=== PATIENT | male | born 1990 | race Caucasian/White ===

== ENCOUNTER 2017-12-23 18:13 | Emergency (ER) | payer BC ==
[2017-12-23 18:38] VITALS: BP 191/117
[2017-12-23] MEDS ORDERED: Aspirin Low Dose CHEW TAB* 81 MG PO ONE (18:48)
--- NOTE | 2017-12-23 18:54 | UC ---
Cardiac HPI - HPI Summary HPI Summary: Pt presents to ED with SO. Pt states approx 1 hour ago was driving when developed sudden left sided heaviness. Pt sates pain radiated to right side and right scapula. Pt states felt SOB with pain. no diaphoresis, no nausea. No khoury, vision changes. Pt states at present, pain primarily in right scapula. Pt denies SOB, lightheadedness. No h/o similar. Pt states SOB increased when laid flat for EKG. no h/o similar. Pt states MGF [place] age 40. No DM. No tobacco use Pt's medications reviewed this visit - History of Current Complaint Chief Complaint: UCChestPain Stated Complaint: CHEST PAIN Time Seen by Provider: 12/23/17 18:28 Hx Obtained From: Patient Onset/Duration: Gradual Onset Initial Severity: Moderate Current Severity: Mild Chest Pain Location: Right Anterior, Left Lateral Character: Dull/Aching, Heaviness, Pressure/Squeezing Aggravating Factor(s): Nothing Alleviating Factor(s): Rest Associated Signs & Symptoms: Negative: Weakness, Dizziness, Cough, Back Pain - Allergy/Home Medications Allergies/Adverse Reactions: Allergies Allergy/AdvReac Type Severity Reaction Status Date / Time No Known Allergies Allergy Verified 12/23/17 18:27 Home Medications: Home Medications FLUoxetine CAP* [Prozac CAP*] 20 mg DAILY 12/23/17 [History Confirmed 12/23/17] PMH/Surg Hx/FS Hx/Imm Hx Previously Healthy: Yes - Surgical History Surgical History: Yes Surgery Procedure, Year, and Place: 04/2014 kyphoplasty - Family History Known Family History: Positive: Other - MGF [place] age 40 - Social History Occupation: Employed Full-time Lives: With Family Alcohol Use: None Substance Use Type: None Smoking Status (MU): Never Smoked Tobacco - Immunization History Most Recent Tetanus Shot: 2013 Review of Systems Constitutional: Negative Skin: Negative Eyes: Negative Respiratory: Shortness Of Breath Cardiovascular: Chest Pain All Other Systems Reviewed And Are Negative: Yes Physical Exam Triage Information Reviewed: Yes Appearance: Well-Appearing, No Pain Distress, Well-Nourished Vital Signs: Initial Vital Signs Temp 97 F 12/23/17 18:28 Pulse 73 12/23/17 18:28 Resp 20 12/23/17 18:28 BP 191/117 12/23/17 18:28 Pulse Ox 100 12/23/17 18:28 Vital Signs Reviewed: Yes Eye Exam: Normal Eyes: Positive: Conjunctiva Clear ENT Exam: Normal ENT: Positive: Hearing grossly normal, Pharynx normal, TMs normal Dental Exam: Normal Neck exam: Normal Neck: Positive: Supple, Nontender, No Lymphadenopathy Respiratory Exam: Normal Respiratory: Positive: Chest non-tender, Lungs clear, Normal breath sounds, No respiratory distress, No accessory muscle use, Other: - no reproducible with direct palpation, ROM CTA throughout no w/r Cardiovascular Exam: Normal Cardiovascular: Positive: RRR, No Murmur, Pulses Normal Abdominal Exam: Normal Abdomen Description: Positive: Nontender, No Organomegaly, Soft Bowel Sounds: Positive: Present Musculoskeletal Exam: Normal Musculoskeletal: Positive: Strength Intact Neurological Exam: Normal Psychological Exam: Normal Skin Exam: Normal Diagnostics - EKG Cardiac Rate: NL Cardiac Rhythm: Sinus: Normal - 87 Ectopy: None ST Segment: Normal - Assessment/Plan Course Of Treatment: Pt with left sided chest pressure which radiated to right anterior chest and scapula 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 Pain improved and not right scapula only. Pt noted to have very high BP at . Pt with significant family hx, no personal hx. recommend ED for further eval. Pt requesting ke - will go by POV - to drive. spoke with Desirae at ED -a ccepting pt. 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 They are expecting you. Your spouse should drive you. If you develop any changes to your symptoms or you have any concerns - slab puller and call [phone]
[2017-12-24] MEDS ORDERED: Aspirin Low Dose CHEW TAB* 81 MG PO ONE (18:44)
== END 2017-12-23 18:55 ==
LOC: UCCORT 18:13
DX: R07.89 Other chest pain (principal); R06.02 Shortness of breath; M25.511 Pain in right shoulder
CPT/HCPCS: 93005; 99212; A9270-GY; G0463

== ENCOUNTER 2019-06-24 09:41 | Emergency (ER) | payer BC, OTHER ==
[2019-06-24 10:31] VITALS: BP 154/99
--- NOTE | 2019-06-24 11:30 | UC ---
Neck Pain HPI - HPI Summary HPI Summary: Pt presents with c/o right side neck pain that began yesterday after a large wooden beam fell onto the right side of shoulder/neck while at work, the pt states that he supported the beam with his shoulder and upper back and neck until the lift could readjust to gain control of the beam. Pt states pain in right side shoulder and neck began last evening and this morning. - History of Current Complaint Chief Complaint: UCBackPain Stated Complaint: WC NECK/RIGHT SHOULDER INJURY Time Seen by Provider: 06/24/19 10:48 Hx Obtained From: Patient Onset/Duration Of Injury/Symptoms: Hours Mechanism Of Injury: Blunt Trauma Onset/Duration: Gradual Onset, Lasting Hours, Still Present Severity: Moderate Pain Intensity: 5 Character: Dull, Aching, Stiff Aggravating Factors: Movement Alleviating Factors: Position Associated Signs & Symptoms: Positive: Negative - Risk Factors Meningitis Risk Factors: Negative Risk Factors For Cervical Spine Injury: Posterior Midline Cervical Spine Tenderness - Allergies/Home Medications Allergies/Adverse Reactions: Allergies Allergy/AdvReac Type Severity Reaction Status Date / Time acetaminophen [From Vicodin] Allergy Altered Verified 06/24/19 10:32 Mental Status hydrocodone [From Vicodin] Allergy Altered Verified 06/24/19 10:32 Mental Status Home Medications: Home Medications Baclofen TAB* [Lioresal TAB*] 1 tab PO ONCE 06/24/19 [History Confirmed 06/24/19 ] PMH/Surg Hx/FS Hx/Imm Hx Previously Healthy: Yes - Surgical History Surgical History: Yes Surgery Procedure, Year, and Place: 04/2014 kyphoplasty. RIGHT HAND REPAIR 2007. LEFT ANKLE REPAIR - Family History Known Family History: Positive: Other - MGF [place] age 40 - Social History Occupation: Employed Full-time Lives: With Family Alcohol Use: Rare Substance Use Type: None Smoking Status (MU): Never Smoked Tobacco Have You Smoked in the Last Year: No - Immunization History Most Recent Tetanus Shot: 2013 Vaccination Up to Date: Yes Review of Systems All Other Systems Reviewed And Are Negative: Yes Constitutional: Positive: Negative Skin: Positive: Negative Eyes: Positive: Negative ENT: Positive: Negative Respiratory: Positive: Negative Cardiovascular: Positive: Negative Gastrointestinal: Positive: Negative Genitourinary: Positive: Negative Motor: Positive: Decreased ROM - neck Neurovascular: Positive: Negative Musculoskeletal: Positive: Arthralgia, Decreased ROM, Myalgia Neurological: Positive: Negative Psychological: Positive: Negative Is Patient Immunocompromised?: No Physical Exam Triage Information Reviewed: Yes Appearance: Pain Distress - with neck movement Vital Signs: Initial Vital Signs Temp 98.3 F 06/24/19 10:26 Pulse 61 06/24/19 10:26 Resp 16 06/24/19 10:26 BP 154/99 06/24/19 10:26 Pulse Ox 100 06/24/19 10:26 Vital Signs Reviewed: Yes Eye Exam: Normal ENT Exam: Normal Dental Exam: Normal Neck: Positive: Tenderness @ - along C5-7 Respiratory Exam: Normal Cardiovascular Exam: Normal Musculoskeletal: Positive: ROM Limited @ - neck generalizeddue to discomfort, pain and stiffness Neurological Exam: Normal Psychological Exam: Normal Skin Exam: Normal Diagnostics - Radiology No standard instances Radiology Interpretation Completed By: Radiologist - IMPRESSION: 1. THERE IS STRAIGHTENING OF THE CERVICAL SPINE. THERE IS NO EVIDENCE FOR FRACTURE OR SUBLUXATION. 2. MILD CERVICAL SPONDYLOSIS DESCRIBED. Neck Pain Course/Dx - Differential Dx/Diagnosis Differential Dx/HQI/PQRI: Cervical Fracture, Sprain, Strain Provider Diagnosis: Neck pain on right side Discharge - Sign-Out/Discharge Documenting (check all that apply): Patient Departure All imaging exams completed and their final reports reviewed: Yes - Discharge Plan Condition: Stable Disposition: HOME Patient Education Materials: Cervical Strain (ED), Acute Neck Pain (ED) Referrals: Diogenes Swani MD [Primary Care Provider] - If Needed - Billing Disposition and Condition Condition: STABLE Disposition: Home - Attestation Statements Provider Attestation: Pt not seen by me. I was available for consult. KRISTINA
== END 2019-06-24 11:37 | disposition home or self-care (01) ==
LOC: UCCORT 09:41
DX: M54.2 Cervicalgia (principal)
CPT/HCPCS: 72125; 99212; G0463

== ENCOUNTER 2019-06-28 09:12 | Emergency (ER) | payer OTHER ==
[2019-06-28 09:26] VITALS: BP 140/89
--- NOTE | 2019-06-28 09:35 | UC ---
Back Pain HPI - HPI Summary HPI Summary: Beam at work was on his neck and right shoulder on 06/23/19. Was seen here on , CT done and diagnosed with cervical strain. Does have history of compression fracture of L1. Now having pain in the same area. Unable to sleep or touch without pain. his pain is located in the lower thoracic region, along the spinus processes of the vertebra - History of Current Complaint Chief Complaint: UCBackPain Stated Complaint: W/C BACK PAIN Hx Obtained From: Patient Onset/Duration: Sudden Onset, Lasting Days - 7 Timing: Constant Severity Initially: Moderate Severity Currently: Moderate Pain Intensity: 6 Back Pain: Is Discrete @ Character: Aching, Spasmodic Aggravating Factor(s): Movement, Lifting, Bending, Walking, Cough - Allergies/Home Medications Allergies/Adverse Reactions: Allergies Allergy/AdvReac Type Severity Reaction Status Date / Time acetaminophen [From Vicodin] Allergy Altered Verified 06/28/19 09:25 Mental Status hydrocodone [From Vicodin] Allergy Altered Verified 06/28/19 09:25 Mental Status PMH/Surg Hx/FS Hx/Imm Hx Previously Healthy: Yes - Surgical History Surgical History: Yes Surgery Procedure, Year, and Place: 04/2014 kyphoplasty. RIGHT HAND REPAIR 2007. LEFT ANKLE REPAIR. L1 surgery - Family History Known Family History: Positive: Other - MGF [place] age 40 - Social History Alcohol Use: Rare Substance Use Type: None Smoking Status (MU): Never Smoked Tobacco Have You Smoked in the Last Year: No - Immunization History Most Recent Tetanus Shot: 2013 Vaccination Up to Date: Yes Review of Systems All Other Systems Reviewed And Are Negative: Yes Musculoskeletal: Positive: Arthralgia, Decreased ROM, Myalgia Is Patient Immunocompromised?: No Physical Exam Triage Information Reviewed: Yes Appearance: Well-Appearing, Well-Nourished, Pain Distress Vital Signs: Initial Vital Signs Temp 98.1 F 06/28/19 09:22 Pulse 64 06/28/19 09:22 Resp 16 06/28/19 09:22 BP 140/89 06/28/19 09:22 Pulse Ox 100 06/28/19 09:22 Vital Signs Reviewed: Yes Eye Exam: Normal ENT Exam: Normal Dental Exam: Normal Neck exam: Normal Neck: Positive: Supple, Nontender, No Lymphadenopathy Respiratory Exam: Normal Respiratory: Positive: Chest non-tender, Lungs clear, Normal breath sounds Cardiovascular Exam: Normal Cardiovascular: Positive: RRR, No Murmur, Pulses Normal Abdominal Exam: Normal Bowel Sounds: Positive: Present Musculoskeletal: Positive: Strength Intact - able to walk and move without difficulty, No Edema, ROM Limited @ - EXT is limited, flexion is not painful Neurological Exam: Normal Psychological Exam: Normal Skin Exam: Normal Back Pain Course/Dx - Course Course Of Treatment: hx obtained, exam performed ,med reviewed, he has hx of L! compression fracture and multiple herniated discs. pain has increased over the last week since the initial injury. xray obtained. - Differential Dx/Diagnosis Differential Diagnosis/HQI/PQRI: Fracture, Herniated Disc, Strain, Sprain Provider Diagnosis: Thoracic spine pain Discharge - Sign-Out/Discharge Documenting (check all that apply): Patient Departure All imaging exams completed and their final reports reviewed: Yes - Discharge Plan Condition: Stable Disposition: HOME Patient Education Materials: Thoracic Pain (ED) Referrals: Diogenes Swain MD [Primary Care Provider] - Timoteo Dewitt MD [Medical Doctor] - Additional Instructions: 1. rest, stretch, and heat the back 2. Continue with your pain medication as needed. 3. FOllow up with Dr Dewitt for further evaluation - Billing Disposition and Condition Condition: STABLE Disposition: Home
== END 2019-06-28 10:15 | disposition home or self-care (01) ==
LOC: UCCORT 09:12
DX: M54.6 Pain in thoracic spine (principal); Z88.5 Allergy status to narcotic agent; Z88.6 Allergy status to analgesic agent
CPT/HCPCS: 72080; 99211; G0463